=== PATIENT | female | born 1950 | race Caucasian/White ===

== ENCOUNTER 2019-02-24 17:59 | Emergency (ER) | payer MEDICARE, BC ==
[~2019-02-24] VITALS: Ht 154.9 cm; Wt 54.0 kg
[2019-02-24] MEDS ORDERED: Zocor20 MG PO (20:24)
[2019-02-24] MEDS ORDERED: Pantoprazole So40 MG PO (20:25)
[2019-02-24] MEDS ORDERED: CLOP75 PO (20:25)
[2019-02-24] MEDS ORDERED: TIOT18 INH (20:25)
[2019-02-24] MEDS ORDERED: Mobic15 MG PO (20:25)
[2019-02-24] MEDS ORDERED: DULERA 100 MCG/13 G1 IH (20:25)
== END 2019-02-24 20:25 | disposition home or self-care (01) ==
LOC: ER 17:59
DX: S61.211A Laceration without foreign body of left index finger without damage to nail, initial encounter (principal); W26.0XXA Contact with knife, initial encounter; J44.9 Chronic obstructive pulmonary disease, unspecified; Z87.891 Personal history of nicotine dependence
CPT/HCPCS: 12002; 90471; 90714; 99282-25

== ENCOUNTER 2020-03-26 07:47 | Day surgery (SDC) | payer MEDICARE, BC ==
[~2020-03-26] VITALS: Ht 154.9 cm; Wt 58.3 kg
[~2020-03-26 07:47] MED LIST: ALEN70 PO; B Complex-Foli1 EACH PO; CALCIUM 600 +1 EA11; CENTRUM SILVER1 EAC2 PO; CLOP75 PO; DICL75ER PO; DOCU100 PO; DULERA 100 MCG/13 G1 IH; Mobic15 MG PO; Pantoprazole So40 MG PO; TIOT18 INH; UBID10; Zocor20 MG PO
--- NOTE | 2020-03-26 08:29 | NUR ---
PT ADMITTED TO [facility]. AGREES WITH PLANNED PROCEDURE. LUNG SOUNDS CLEAR. TOLERATED BOWEL PREPA ND STATES LAST BM CLEAR YELLOW.
--- NOTE | 2020-03-26 09:24 | NUR ---
03/26/20 0924 Jaime Voss PATIENT DETERMINED TO BE ASA APPROPRIATE FOR PROPOFOL SEDATION PRIOR TO START OF PROCEDURE BY DR. Padma Jaffe Placed3-LEAD EKG REVIEWED WITH PHYSICIAN PRIOR TO START OF PROCEDURE.Patient to ENDO 1History, Chart, Medications and Allergies reviewed before start of procedure.MONITOR INTACT WITH CONTINUOUS PULSE OXIMETRY AND INTERMITTENT BP.O2 VIA N/C INTACT THROUGHOUT SEDATION/PROCEDURE.
--- NOTE | 2020-03-26 10:34 | NUR ---
Patient up to Ambulate independently. Gait steady. Discharge instructions reviewed with patient. Patient verbalizes understanding. Copy given to patient to take home. Patient States Post-Procedure ride home has been arranged. Discharged via wheelchair to private car for ride home. ALL BELONINGS RETURNED TO PATIENT.
== END 2020-03-26 23:03 | disposition home or self-care (01) ==
LOC: ORSCMMR 07:47 → ORD 09:30 → ORSCMMR 09:30
PROVIDERS: Internal Medicine Gastroenterology
PROC: 0DB48ZX Excision of Esophagogastric Junction, Via Natural or Artificial Opening Endoscopic, Diagnostic (ICD-10-PCS; principal; 2020-03-26 09:30)
PROC: 0DBN8ZX Excision of Sigmoid Colon, Via Natural or Artificial Opening Endoscopic, Diagnostic (ICD-10-PCS; principal; 2020-03-26 09:30)
PROC: 0DB68ZX Excision of Stomach, Via Natural or Artificial Opening Endoscopic, Diagnostic (ICD-10-PCS; principal; 2020-03-26 09:30)
PROC: 0DB58ZX Excision of Esophagus, Via Natural or Artificial Opening Endoscopic, Diagnostic (ICD-10-PCS; principal; 2020-03-26 09:30)
DX: K62.5 Hemorrhage of anus and rectum (principal); K63.5 Polyp of colon; K21.0 Gastro-esophageal reflux disease with esophagitis; K29.70 Gastritis, unspecified, without bleeding; J44.9 Chronic obstructive pulmonary disease, unspecified; I73.9 Peripheral vascular disease, unspecified; Z79.899 Other long term (current) drug therapy; Z87.891 Personal history of nicotine dependence; Z79.01 Long term (current) use of anticoagulants
CPT/HCPCS: 88305; 88342; J2704; J7120

== ENCOUNTER → 2021-09-08 | Outpatient (CLI) | payer MEDICARE, BC ==
[2021-09-08 13:44] LABS: Hematocrit 32.6 % (33.0-51.0); Hemoglobin 10.1 g/dL (11.5-16.0); Mean Corpuscular HGB 26.3 pg (26.0-34.0); Mean Corpuscular Volume 85 fL (80-100); Mean Platelet Volume 9.2 fL (9.1-12.4); Platelet Count 431 K/mm3 (150-400); RDW Coefficient Variation 14.8 % (11.7-14.2); RDW Standard Deviation 45.4 fL (35.1-46.3); Red Blood Cell Count 3.84 M/mm3 (3.80-5.20); White Blood Cell Count 8.34 K/mm3 (4.00-11.30)
[2021-09-08 14:05] LABS: Albumin, Blood 3.3 g/dL (3.4-5.0); Albumin/Globulin Ratio 0.7 (0.8-1.8); Bilirubin, Total 0.3 mg/dL (0.1-1.0); Bun/Creatinine Ratio 18.6 (12.0-20.0); Calcium, Blood 9.6 mg/dL (8.5-10.1); Creatinine, Blood 1.02 mg/dL (0.40-1.00); Globulin, Blood 4.8 g/dL (2.2-4.0); Phosphorus, Blood 3.6 mg/dL (2.5-4.9); Total Protein, Blood 8.1 g/dL (6.4-8.2)
[2021-09-08 14:21] LABS: BASOPHILS ABSOLUTE MAN 0.16 K/mm3 (0.00-0.23); BASOPHILS PERCENT MAN 2 % (0-2); EOSINOPHILS PERCENT MAN 0 % (0-6); LYMPHOCYTES ABSOLUTE MAN 2.41 K/mm3 (0.84-5.20); LYMPHOCYTES PERCENT MAN 29 % (21-46); MONOCYTES ABSOLUTE MAN 0.41 K/mm3 (0.16-1.47); MONOCYTES PERCENT MAN 5 % (4-13); NEUTROPHILS ABSOLUTE MAN 5.33 K/mm3 (1.96-9.15); SEG NEUTROPHILS PERCENT MAN 64 % (41-73); TOTAL CELLS COUNTED 100
== END ==
LOC: LAB 12:57 → LAB SHORT 12:57
PROVIDERS: Nurse Practitioner
DX: K52.9 Noninfective gastroenteritis and colitis, unspecified (principal); K92.1 Melena; R10.30 Lower abdominal pain, unspecified
CPT/HCPCS: 80053; 84100; 85007; 85027

== ENCOUNTER 2025-10-04 21:00 | Emergency (ER) | payer OTHER, MEDICARE, BC ==
[~2025-10-04] VITALS: Ht 157.5 cm; Wt 52.2 kg
[2025-10-04 21:09] VITALS: BP 114/91
[2025-10-04] MEDS ORDERED: HYDROcodone 5-APAP 325 TAB PO ONE ×2 (21:15→23:55)
[2025-10-05] MEDS ORDERED: RX Prepack 6 Tabs Oxycodone 5mg UD ONE (00:45)
== END 2025-10-05 01:12 | disposition home or self-care (01) ==
LOC: ER 21:00
DX: M79.621 Pain in right upper arm (principal); W01.0XXA Fall on same level from slipping, tripping and stumbling without subsequent striking against object, initial encounter; Z79.01 Long term (current) use of anticoagulants; Z87.891 Personal history of nicotine dependence; Z79.899 Other long term (current) drug therapy
CPT/HCPCS: 73030; 73130; 99283-25; A9270